=== PATIENT | male | born 1965 | race Caucasian/White ===

== ENCOUNTER 2016-04-12 10:09 | Emergency (ER) | payer BC ==
[~2016-04-12] VITALS: Ht 180.3 cm; Wt 68.0 kg
[~2016-04-12 10:09] MED LIST: ASPI1TAB22 PO; AZIT250T PO; CEFD300C3 PO; D ME PO; FAMO20TA5 PO; GNT.3OO351 OS; HYDR-757 PO; METO-333 PO; RIVA15TA PO
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
[2016-04-12 10:32] LABS: BILIRUBIN,URINE NEGATIVE (NEGATIVE); KETONES,URINE NEGATIVE (NEGATIVE); LEUKOCYTE ESTERASE ,URINE 1+ (NEGATIVE); NITRITE,URINE NEGATIVE (NEGATIVE); PH,URINE 7 (5-9); PROTEIN,URINE NEGATIVE (NEGATIVE); UROBILINOGEN,URINE 1 MG/DL (NORMAL)
--- NOTE | 2016-04-12 11:11 | ED GU-Male ---
General Chief Complaint: -Male Stated Complaint: L SIDE TESTICLE PAIN Nursing Triage Note: PT REPROTS DR PRITCHETT HAS BEEN TREATING HIM FOR A PROSTATE INFECTION SINCE THE . PT REPORTS HE CONTINUES TO HAVE L TESTICULAR PAIN AND BLOOD IN HIS URINE. Source: patient Exam Limitations: no limitations History of Present Illness Time seen by provider: 10:10 Initial Comments This 51-year-old gentleman presents to the emergency room with concerns about left testicular pain and hematuria. He also reports one episode of blood in his semen. He has been seeing Dr. Pritchett and is currently under treatment for prostatitis. He has completed 8 days of Bactrim and is on a prolonged taper. He is on anticoagulation therapy with Xarelto for history of DVT and pulmonary embolism. He reports Dr. Pritchett has performed a thorough workup including cystoscopy and CT of the abdomen and pelvis. A scrotal ultrasound has not been performed. His left testicular pain is his primary concern today. It is actually been intermittent for several weeks but has been worse the last couple of nights. The pain seems to be more in the location of the epididymis. He states the pain has not really improved since starting antibiotics. He denies any fever. No hematuria today. No dysuria. Allergies and Home Medications Allergies Coded Allergies: NKANo Known Allergies (Verified Allergy, Unknown, 03/25/05) peanut (Unverified Allergy, Unknown, 06/11/15) FROM UNCODED ALLERGIES Home Medications Aspirin/Acetaminophen/Caffeine 1 Each Tablet 1 TAB PO Q6H PRN PRN PAIN (Reported ) Azithromycin 250 Mg Tablet #2 250 MG PO DAILY TAKE 2 TABLETS TODAY, THEN TAKE 1 TABLET DAILY FOR 4 MORE DAYS Prescribed by: AMERICA DIALLO on 06/11/15 1632 Cefdinir 300 Mg Capsule #10 300 MG PO BID Prescribed by: AMERICA DIALLO on 06/11/15 1632 D-Methorphan/PE/Acetaminophen 1 Each Tablet 1 TAB PO Q4H PRN PRN ALLERGIES ( Reported) Famotidine 20 Mg Tablet #60 20 MG PO BID PRN PRN INDIGESTION Prescribed by: AMERICA DIALLO on 06/11/15 1632 Metoprolol Tartrate 25 Mg Tablet #60 25 MG PO BID Prescribed by: AMERICA DIALLO on 06/11/15 1632 Rivaroxaban 15 Mg Tablet #38 15 MG PO BID@,17 Take Xarelto 15 mg BID for 19 days then take 20 mg daily Prescribed by: AMERICA DIALLO on 06/11/15 1632 Constitutional: no symptoms reported EENTM: no symptoms reported Respiratory: no symptoms reported Cardiovascular: no symptoms reported Gastrointestinal: no symptoms reported Genitourinary: see HPI Musculoskeletal: no symptoms reported Skin: no symptoms reported Psychiatric/Neurological: No Symptoms Reported Endocrine: No Symptoms Reported Past Gmujcaw-Uaietr-Bghrta Hx Patient Social History Alcohol Use: Occasionally Uses Recreational Drug Use: No Smoking Status: Never a Smoker Recent Foreign Travel: No Contact w/Someone Who Travel: No Recent Infectious Disease Expo: No Recent Hopitalizations: No Immunizations Up To Date Tetanus Booster (TDap): More than 5yrs PED Vaccines UTD: No Date of Influenza Vaccine: Dec 04, 2015 Seasonal Allergies Seasonal Allergies: No Surgeries HX Surgeries: Yes (Vena Cava filter IVF) Respiratory Hx Respiratory Disorders: Yes Respiratory Disorders: Pulmonary Embolism Cardiovascular Hx Cardiac Disorders: Yes Cardiac Disorders: Deep Vein Thrombosis, Hypertension Neurological Hx Neurological Disorders: No Reproductive System Hx Reproductive Disorders: No Sexually Transmitted Disease: No HIV/AIDS: No Genitourinary Hx Genitourinary Disorders: No Genitourinary Disorders: Prostate Problems Gastrointestinal Hx Gastrointestinal Disorders: No Musculoskeletal Hx Musculoskeletal Disorders: No Endocrine Hx Endocrine Disorders: No HEENT HX ENT Disorders: No Cancer Hx Cancer: No Psychosocial Hx Psychiatric Problems: No Integumentary HX Skin/Integumentary Disorder: No Blood Transfusions Hx Blood Disorders: Yes (PROTEIN S DEF) Adverse Reaction to a Blood Tr: No Family Medical History Family Medial History: Arthritis Colon cancer 19 FATHER ( from Colon Cancer), , Age:56, Onset:50's - 60 Hypertension 19 MOTHER, Onset:50's - 60 Physical Exam Vital Signs Vital Sign - Last 12Hours 04/12/16 10:15 Temp 98.2 Pulse 71 Resp 18 B/P 138/81 Pulse Ox 98 O2 Delivery Room Air Capillary Refill : Less Than 3 Seconds General Appearance: WD/WN no apparent distress HEENT: PERRL/EOMI normal ENT inspection Neck: normal inspection Cardiovascular: regular rate, rhythm no edema no murmur Respiratory: lungs clear normal breath sounds no respiratory distress Gastrointestinal: non tender soft Male: no hernia testicular tenderness (posterior to the superior left testicle ) other (no evidence of hernia, erythema, orchitis, or mass based on exam) Back: normal inspection Extremities: normal inspection Neurologic/Psychiatric: brusher and shearer II-XII nml as tested no motor/sensory deficits alert normal mood/affect oriented x 3 Skin: normal color warm/dry Progress/Results/Core Measures Results/Orders Lab Results Laboratory Tests Test 04/12/16 10:14 Range/Units Urine Bacteria TRACE /HPF Urine Bilirubin NEGATIVE NEGATIVE Urine Casts NONE /LPF Urine Clarity CLEAR Urine Color YELLOW Urine Crystals NONE /LPF Urine Culture Indicated NO Urine Glucose (UA) NEGATIVE NEGATIVE Urine Ketones NEGATIVE NEGATIVE Urine Leukocyte Esterase 1+ H NEGATIVE Urine Mucus NEGATIVE /LPF Urine Nitrite NEGATIVE NEGATIVE Urine Protein NEGATIVE NEGATIVE Urine RBC NONE /HPF Urine RBC (Auto) NEGATIVE NEGATIVE Urine Specific [place] 1.010 L 1.016-1.022 Urine Urobilinogen 1 NORMAL MG/DL Urine WBC NONE /HPF Urine pH 7 5-9 My Orders Orders-CARMENCITA DUNN MD Ua Culture If Indicated (04/12/16 10:10) Vital Signs/I&O Vital Sign - Last 12Hours 04/12/16 04/12/16 10:15 11:20 Temp 98.2 Pulse 71 65 Resp 18 18 B/P 138/81 Pulse Ox 98 99 O2 Delivery Room Air Blood Pressure Mean: 100 Progress Note : Progress Note These symptoms are subacute and have been waxing and waning for several weeks. Emergent ultrasound was not felt necessary. An outpatient order form was provided to obtain an ultrasound next week. Departure Impression Impression: Primary Impression: Left testicular pain Disposition: HOME, SELF-CARE Condition: Stable Departure-Patient Inst. Decision time for Depature: 11:00 Referrals: NO,LOCAL PHYSICIAN (PCP/Family) Primary Care Physician Patient Instructions: NO INSTRUCTIONS GIVEN Add. Discharge Instructions: Continue with your antibiotics as prescribed. Call [phone] to schedule your US tomorrow morning. Contact Dr. Pritchett's office tomorrow morning as well to notify them of your continued problems. All discharge instructions reviewed with patient and/or family. Voiced understanding. Copy Copies To 1: YOANA PRITCHETT MD, JOSHUA T MD Apr 12, 2016 11:11
[2016-04-12 11:20] VITALS: BP 126/78
== END 2016-04-12 11:20 | disposition home or self-care (01) ==
LOC: EDUNIT# 10:09 → ER 10:11
DX: N50.812 Left testicular pain (principal); R31.9 Hematuria, unspecified; I10 Essential (primary) hypertension; Z79.82 Long term (current) use of aspirin; Z79.899 Other long term (current) drug therapy
CPT/HCPCS: 81000; 99283

== ENCOUNTER → 2016-04-13 | Outpatient (CLI) | payer BC ==
--- OUTSIDE RECORDS SUMMARY | 2016-04-13 09:05 | XMS REPORT | Continuity of Care Document ---
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 No 04/12/16 10:15am Organ Donor No 04/12/16 10:15am Resuscitation Status Full Code 04/12/16 10:15am Chief Complaint and Reason for Visit Chief Complaint -Male Reason for Visit [id number] Problems Active Problems Medical Problem Onset Date Status Chest pain Unknown Acute Corneal abrasion, right Unknown Acute Left testicular pain Unknown Acute Pneumonia Unknown Acute Subconjunctival hemorrhage of right eye Unknown Acute Medications Current Home Medications Medication Dose Units Route Directions Days/Qty Instructions Start Date Aspirin/Acetaminophen/Caffeine 1 Each 1 Tab Oral Every 6 Hours as needed for Pain 06/10/15 D-Methorphan/Pe/Acetaminophen 1 Each 1 Tab Oral Every 4HRS as needed for Allergies 06/10/15 Rivaroxaban 15 Mg 15 Mg Oral Bid@,17 38 Take Xarelto 15 mg BID for 19 days then take 20 mg daily 06/11/15 Metoprolol Tartrate 25 Mg 25 Mg Oral Twice A Day 60 06/11/15 Cefdinir (Omnicef) 300 Mg 300 Mg Oral Twice A Day 10 06/11/15 Azithromycin 250 Mg 250 Mg Oral Daily 2 TAKE 2 TABLETS TODAY, THEN TAKE 1 TABLET DAILY FOR 4 MORE DAYS 06/11/15 Famotidine 20 Mg 20 Mg Oral Twice A Day as needed for Indigestion 60 06/11/15 Past Home Medications Medication Directions Ordered Status Hydrocodone Bit/Acetaminophen 1 Each Tablet, 1 Ea Oral Every 6 Hours as needed for Severe Pain 05/30/14 Discontinued Gentamicin Sulfate 3.5 Gm Oint, 0 Left Eye Three Times A Day 05/30/14 Discontinued Social History Social History Problem Response Recorded Date/Time Alcohol Use Occasionally Uses 06/08/2015 10:47pm Recreational Drug Use No 06/08/2015 10:47pm Recent Foreign Travel No 04/12/2016 10:15am Recent Infectious Disease Exposure No 04/12/2016 10:15am Sexually Transmitted Disease No 04/12/2016 10:15am HIV/AIDS No 04/12/2016 10:15am Smoking Status Never a Smoker 04/12/2016 10:15am Do you dip or chew tobacco? No 06/08/2015 10:37pm Recent Hopitalizations No 04/12/2016 10:15am Sexually Transmitted Disease No 04/12/2016 10:15am Query Response Start Date Stop Date Smoking Status Never a Smoker Hospital Discharge Instructions No hospital discharge instructions. Plan of Care Discharge Date 04/12/16 11:20am Disposition 01 HOME, SELF-CARE Condition at Discharge Stable Instructions/Education Provided NO INSTRUCTIONS GIVEN Prescriptions See Medication Section Referrals NO,LOCAL PHYSICIAN - Primary Care Physician Additional Instructions/Education Continue with your antibiotics as prescribed. Call [phone] to schedule your US tomorrow morning. Contact Dr. Pritchett's office tomorrow morning as well to notify them of your continued problems. All discharge instructions reviewed with patient and/or family. Voiced understanding. Functional Status No functional status results. Allergies, Adverse Reactions, Alerts Allergen Type Severity Reaction Status Last Updated peanut ([id number]) Allergy Unknown Active 06/11/15 NKANo Known Allergies Allergy Unknown Active 03/25/05 Immunizations No immunization records. Vital Signs Acute Vital Signs Vital Response Date/Time Temperature (Fahrenheit) 98.2 degrees F (97.6 - 99.5) 04/12/2016 10:15am Temperature (Calculated Celsius) 36.01046 degrees C (36.4 - 37.5) 04/12/2016 10:15am Temperature Source Temporal 04/12/2016 10:15am Pulse Rate (adult) 71 bpm (60 - 90) 04/12/2016 10:15am Respiratory Rate 18 bpm (12 - 24) 04/12/2016 10:15am O2 Sat by Pulse Oximetry 98 % (88 - 100) 04/12/2016 10:15am Blood Pressure 138/81 mm Hg 04/12/2016 10:15am Blood Pressure Mean 100 mm Hg 04/12/2016 10:15am Pain Numeric Pain Scale 3 04/12/2016 10:15am Height (Feet) 5 feet 04/12/2016 10:15am Height (Inches) 11.00 inches 04/12/2016 10:15am Height (Calculated Centimeters) 180.985842 cm 04/12/2016 10:15am Weight (Pounds) 150 pounds 04/12/2016 10:15am Weight (Ounces) 0.0 oz 04/12/2016 10:15am Weight (Calculated Grams) 06692.932 gm 04/12/2016 10:15am Weight (Calculated Kilograms) 68.213721 kilograms 04/12/2016 10:15am Calculated BMI 19.8 04/12/2016 10:15am Capillary Refill Capillary Refill Less Than 3 Seconds 04/12/2016 10:15am Results Laboratory Results Test Name Result Units Flags Reference Collection Date/Time Result Date/ Time Comments Urine Color YELLOW 04/12/2016 10:14am 04/12/2016 10:47am Urine Clarity CLEAR 04/12/2016 10:14am 04/12/2016 10:47am Urine pH 7 5-9 04/12/2016 10:14am 04/12/2016 10:47am Urine Specific [place] 1.010 * 1.016-1.022 04/12/2016 10:14am 2016 10:47am Urine Protein NEGATIVE NEGATIVE 04/12/2016 10:14am 04/12/2016 10: 47am Urine Glucose (UA) NEGATIVE NEGATIVE 04/12/2016 10:14am 04/12/2016 10 :47am Urine RBC (Auto) NEGATIVE NEGATIVE 04/12/2016 10:14am 04/12/2016 10: 47am Urine Ketones NEGATIVE NEGATIVE 04/12/2016 10:14am 04/12/2016 10: 47am Urine Nitrite NEGATIVE NEGATIVE 04/12/2016 10:14am 04/12/2016 10: 47am Urine Bilirubin NEGATIVE NEGATIVE 04/12/2016 10:14am 04/12/2016 10: 47am Urine Urobilinogen 1 MG/DL NORMAL 04/12/2016 10:14am 04/12/2016 10: 47am Urine Leukocyte Esterase 1+ * NEGATIVE 04/12/2016 10:14am 04/12/2016 10 :47am Urine RBC NONE /HPF 04/12/2016 10:14am 04/12/2016 10:47am Urine WBC NONE /HPF 04/12/2016 10:14am 04/12/2016 10:47am Urine Bacteria TRACE /HPF 04/12/2016 10:14am 04/12/2016 10:47am Urine Crystals NONE /LPF 04/12/2016 10:14am 04/12/2016 10:47am Urine Casts NONE /LPF 04/12/2016 10:14am 04/12/2016 10:47am Urine Mucus NEGATIVE /LPF 04/12/2016 10:14am 04/12/2016 10:47am Urine Culture Indicated NO 04/12/2016 10:14am 04/12/2016 10:47am Procedures No known history of procedures. Encounters Encounter Location Arrival/Admit Date Discharge/Depart Date Attending Provider Departed Emergency Room [facility] 04/12/16 10:11am 11:20am CARMENCITA DUNN MD Recent Diagnosis
--- NOTE | 2016-04-13 11:01 | Diagnostic Imaging Report ---
Scrotal ultrasound. INDICATION: Left testicular pain. FINDINGS: The right testicle is 4.8 x 2.8 x 2.9 cm. The left testicle is 4.0 x 1.9 x 2.8 cm. There is a tiny focus of hyperechoic area seen in the left testicle measuring 2 x 2 x 1 mm with no associated shadowing and no internal vascularity demonstrated. There is a left epididymis head simple cyst seen measuring 5 mm. There is bilateral vascularity demonstrated in the testicles in a symmetric fashion with color Doppler and venous and arterial waveforms demonstrated over both testicles. No varicocele. No significant hydrocele. IMPRESSION: There is a tiny indeterminate hyperechoic lesion measuring 2 mm in the left testicle of uncertain significance. Sequela of prior minor injury or inflammation is possible. A followup study in four months is recommended to ensure stability or resolution. Dictated by: Dictated on workstation # [id number]
== END ==
LOC: RAD 08:55
PROVIDERS: ATTEND Family Medicine
DX: N50.89 Other specified disorders of the male genital organs (principal)
CPT/HCPCS: 76870

== ENCOUNTER 2016-08-13 08:51 | Emergency (ER) | payer BC ==
[~2016-08-13] VITALS: Ht 180.3 cm; Wt 71.7 kg
[2016-08-13] MEDS ORDERED: SULF-11 (09:07)
[2016-08-13] MEDS ORDERED: RIVA20TA (09:07)
--- NOTE | 2016-08-13 09:07 | ED Cardiac General ---
History of Present Illness General Chief Complaint: Chest Pain Stated Complaint: CHEST PAIN/IRREGULAR HEARBEAT Allergies and Home Medications Allergies Coded Allergies: peanut (Unverified Allergy, Unknown, 06/11/15) FROM UNCODED ALLERGIES Home Medications Famotidine 20 Mg Tablet, 20 MG PO BID PRN for INDIGESTION, #60 Ref 2 Prescribed by: AMERICA DIALLO on 06/11/15 1632 Metoprolol Tartrate 25 Mg Tablet, 25 MG PO BID, #60 Ref 2 Prescribed by: AMERICA DIALLO on 06/11/15 1632 Rivaroxaban 15 Mg Tablet, 15 MG PO BID@,17, #38 Ref 0 Take Xarelto 15 mg BID for 19 days then take 20 mg daily Prescribed by: AMERICA DIALLO on 06/11/15 1632 Rivaroxaban 20 Mg Tablet, #90 (Reported) Sulfamethoxazole/Trimethoprim 1 Each Tablet, #15 (Reported) Past Efswmfl-Fiaxtr-Cfvsjh Hx Patient Social History Recent Hopitalizations: No Immunizations Up To Date Tetanus Booster (TDap): More than 5yrs PED Vaccines UTD: No Date of Influenza Vaccine: Dec 04, 2015 Seasonal Allergies Seasonal Allergies: No Surgeries HX Surgeries: Yes (Vena Cava filter IVF) Respiratory Hx Respiratory Disorders: Yes Respiratory Disorders: Pulmonary Embolism Cardiovascular Hx Cardiac Disorders: Yes Cardiac Disorders: Deep Vein Thrombosis, Hypertension Neurological Hx Neurological Disorders: No Reproductive System Hx Reproductive Disorders: No Sexually Transmitted Disease: No HIV/AIDS: No Genitourinary Hx Genitourinary Disorders: No Genitourinary Disorders: Prostate Problems Gastrointestinal Hx Gastrointestinal Disorders: No Musculoskeletal Hx Musculoskeletal Disorders: No Endocrine Hx Endocrine Disorders: No HEENT HX ENT Disorders: No Cancer Hx Cancer: No Psychosocial Hx Psychiatric Problems: No Integumentary HX Skin/Integumentary Disorder: No Blood Transfusions Hx Blood Disorders: Yes (PROTEIN S DEF) Adverse Reaction to a Blood Tr: No Family Medical History Family Medial History: Arthritis Colon cancer 19 FATHER ( from Colon Cancer), , Age:56, Onset:50's - 60 Hypertension 19 MOTHER, Onset:50's - 60 Physical Exam Vital Signs Vital Sign - Last 12Hours 08/13/16 08:51 Temp 97.2 Pulse 85 Resp 17 B/P (MAP) 141/83 Pulse Ox 99 O2 Delivery Room Air Capillary Refill : Progress/Results/Core Measures Results/Orders Lab Results Laboratory Tests Test 08/13/16 08:58 Range/Units White Blood Count 8.3 4.3-11.0 10^3/uL Red Blood Count 4.58 4.35-5.85 10^6/uL Hemoglobin 14.4 13.3-17.7 G/DL Hematocrit 41 40-54 % Mean Corpuscular Volume 90 80-99 FL Mean Corpuscular Hemoglobin 31 25-34 PG Mean Corpuscular Hemoglobin Concent 35 32-36 G/DL Red Cell Distribution Width 12.7 10.0-14.5 % Platelet Count 239 130-400 10^3/uL Mean Platelet Volume 11.1 H 7.4-10.4 FL Neutrophils (%) (Auto) 70 42-75 % Lymphocytes (%) (Auto) 18 12-44 % Monocytes (%) (Auto) 10 0-12 % Eosinophils (%) (Auto) 2 0-10 % Basophils (%) (Auto) 1 0-10 % Neutrophils # (Auto) 5.8 1.8-7.8 X 10^3 Lymphocytes # (Auto) 1.5 1.0-4.0 X 10^3 Monocytes # (Auto) 0.8 0.0-1.0 X 10^3 Eosinophils # (Auto) 0.2 0.0-0.3 10^3/uL Basophils # (Auto) 0.1 0.0-0.1 10^3/uL Prothrombin Time 18.4 H 12.2-14.7 SEC INR Comment 1.6 H 0.8-1.4 Activated Partial Thromboplast Time 43 H 24-35 SEC Sodium Level 132 L 135-145 MMOL/L Potassium Level 4.2 3.6-5.0 MMOL/L Chloride Level 99 98-107 MMOL/L Carbon Dioxide Level 23 21-32 MMOL/L Anion Gap 10 5-14 MMOL/L Blood Urea Nitrogen 9 7-18 MG/DL Creatinine 1.08 0.60-1.30 MG/DL Estimat Glomerular Filtration Rate > 60 BUN/Creatinine Ratio 8 Glucose Level 110 H 70-105 MG/DL Calcium Level 9.4 8.5-10.1 MG/DL Magnesium Level 2.4 1.8-2.4 MG/DL Total Bilirubin 0.8 0.1-1.0 MG/DL Aspartate Amino Transf (AST/SGOT) 21 5-34 U/L Alanine Aminotransferase (ALT/SGPT) 23 0-55 U/L Alkaline Phosphatase 35 L 40-136 U/L Total Creatine Kinase 119 30-200 U/L Creatine Kinase MB 1.4 <6.6 NG/ML Troponin I < 0.30 <0.30 NG/ML B-Type Natriuretic Peptide 49.1 <100.0 PG/ML Total Protein 7.2 6.4-8.2 GM/DL Albumin 4.5 3.2-4.5 GM/DL Amylase Level 70 25-125 U/L Lipase 22 8-78 U/L TSH [place] Testing 0.68 0.35-4.94 UIU/ML My Orders Orders - NARCISO CORTEZ DO Amylase (08/13/16 08:52) Cbc With Automated Diff (08/13/16 08:52) Comprehensive Metabolic Panel (08/13/16 08:52) Creatine Kinase (08/13/16 08:52) Creatine Kinase Mb (08/13/16 08:52) Lipase (08/13/16 08:52) Partial Thromboplastin Time (08/13/16 08:52) Protime With Inr (08/13/16 08:52) Troponin I (08/13/16 08:52) Chest 1 View, Ap/Pa Only (08/13/16 08:52) O2 (08/13/16 08:52) Ekg Tracing (08/13/16 08:52) BNP (08/13/16 08:52) Monitor-Rhythm Ecg Trace Only (08/13/16 08:52) Magnesium (08/13/16 08:52) Thyroid Analyzer (08/13/16 08:52) Vital Signs/I&O Vital Sign - Last 12Hours 08/13/16 08/13/16 08/13/16 08:51 09:24 10:40 Temp 97.2 Pulse 85 63 Resp 17 18 B/P (MAP) 141/83 Pulse Ox 99 98 O2 Delivery Room Air Room Air Room Air Progress Note : Progress Note UNEVENTFUL ER STAY--PT HAD NO COMPLAINTS DURING STAY, NO CHEST PAIN, NO SHORTNESS OF BREATH AND WAS ASYMPTOMATIC DURING PVC'S WHILE IN ER. ECG Initial ECG Impression Time: 08:56 Initial ECG Rate: 69 Initial ECG Rhythm: Normal Sinus (WITH PVC'S) Initial ECG Comparisson: Unchanged Diagnostic Imaging Comments CXR--NO ACUTE PROCESS, PER RADIOLOGIST REPORT @ 1010 Reviewed: Reviewed by Me Departure Communication Progress Notes 1020--SPOKE WITH DR. DIALLO. HE ADVISES TO DISMISS THE PT AND PT IS TO COME TO HIS OFFICE AFTER HE IS DISMISSED. Impression Impression: Primary Impression: Chest pain Additional Impressions: Frequent PVCs Symptomatic PVCs Anxiety Disposition: 01 HOME, SELF-CARE Condition: Stable Departure-Patient Inst. Referrals: AMERICA DIALLO MD NO,LOCAL PHYSICIAN (PCP) Primary Care Physician Patient Instructions: Chest Pain (DC), Palpitations (DC) Add. Discharge Instructions: GOT DIRECTLY TO DR. DIALLO'S OFFICE FROM ER All discharge instructions reviewed with patient and/or family. Voiced understanding. NARCISO CORTEZ DO Aug 13, 2016 09:07
[2016-08-13 09:08] LABS: BASOPHILS # (AUTO) 0.1 10^3/uL (0.0-0.1); BASOPHILS % (AUTO) 1 % (0-10); EOSINOPHILS # (AUTO) 0.2 10^3/uL (0.0-0.3); EOSINOPHILS % (AUTO) 2 % (0-10); LYMPHOCYTES # (AUTO) 1.5 X 10^3 (1.0-4.0); LYMPHOCYTES % (AUTO) 18 % (12-44); MEAN CORPUSCULAR HEMOGLOBIN 31 PG (25-34); MEAN CORPUSCULAR HGB CONC 35 G/DL (32-36); MEAN CORPUSCULAR VOLUME 90 FL (80-99); MEAN PLATELET VOLUME 11.1 FL (7.4-10.4); MONOCYTES # (AUTO) 0.8 X 10^3 (0.0-1.0); MONOCYTES % (AUTO) 10 % (0-12); NEUTROPHILS # (AUTO) 5.8 X 10^3 (1.8-7.8); NEUTROPHILS % (AUTO) 70 % (42-75); PLATELET COUNT 239 10^3/uL (130-400); RED BLOOD COUNT 4.58 10^6/uL (4.35-5.85); RED CELL DISTRIBUTION WIDTH 12.7 % (10.0-14.5); WHITE BLOOD COUNT 8.3 10^3/uL (4.3-11.0)
[2016-08-13 09:18] LABS: INR 1.6 (0.8-1.4); PROTHROMBIN TIME PATIENT 18.4 SEC (12.2-14.7)
--- NOTE | 2016-08-13 09:25 | Diagnostic Imaging Report ---
EXAMINATION: Portable upright radiograph of the chest. INDICATION: Chest pain. FINDINGS: The lungs are hyperinflated but clear. The heart size is normal. No effusion or pneumothorax. The mediastinum and catalina appear unremarkable. IMPRESSION: Hyperinflated clear lungs. Dictated by: Dictated on workstation # [id number]
[2016-08-13 09:27] LABS: ALANINE AMINOTRANSFERASE 23 U/L (0-55); ALBUMIN 4.5 GM/DL (3.2-4.5); AMYLASE 70 U/L (25-125); ANION GAP 10 MMOL/L (5-14); ASPARTATE AMINO TRANSFERASE 21 U/L (5-34); BILIRUBIN,TOTAL 0.8 MG/DL (0.1-1.0); BLOOD UREA NITROGEN 9 MG/DL (7-18); BUN/CREATININE RATIO 8; CALCIUM 9.4 MG/DL (8.5-10.1); CARBON DIOXIDE 23 MMOL/L (21-32); CHLORIDE 99 MMOL/L (98-107); CREATINE KINASE 119 U/L (30-200); CREATININE SERUM 1.08 MG/DL (0.60-1.30); GFR ESTIMATED > 60; GLUCOSE 110 MG/DL (70-105); LIPASE 22 U/L (8-78); MAGNESIUM 2.4 MG/DL (1.8-2.4); POTASSIUM 4.2 MMOL/L (3.6-5.0); SODIUM 132 MMOL/L (135-145); TOTAL PROTEIN 7.2 GM/DL (6.4-8.2)
[2016-08-13 09:46] LABS: TROPONIN I < 0.30 NG/ML (<0.30)
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
[2016-08-13 10:40] VITALS: BP 119/63
== END 2016-08-13 10:26 | disposition home or self-care (01) ==
LOC: EDUNIT# 08:51 → ER 08:53
DX: R07.9 Chest pain, unspecified (principal); I49.3 Ventricular premature depolarization; I10 Essential (primary) hypertension; F41.9 Anxiety disorder, unspecified
CPT/HCPCS: 36415; 71010; 80053; 82150; 82550; 82553; 83690; 83735; 83880; 84443; 84484; 85025; 85610; 85730; 93005; 93041

== ENCOUNTER → 2016-08-19 | Outpatient (CLI) | payer BC ==
[~2016-08-19] MED LIST changes: +RIVA20TA; +SULF-11
--- NOTE | 2016-08-19 16:42 | STRESS TEST ---
PROCEDURE PHYSICIAN: AMERICA DIALLO DATE OF PROCEDURE: 08/19/2016 EXERCISE STRESS ECHOCARDIOGRAM REPORT: BASELINE HEART RATE: BASELINE BLOOD PRESSURE: 140/80. BASELINE EKG: Sinus rhythm with frequent PVCs. IN SUMMARY: The patient started exercising with a baseline heart rate, blood pressure, EKG mentioned above. During exercise, the patient was having multiple PVCs, ventricular couplet and ventricular trigeminy occasional multifocal PVCs. He was able to exercise for a total of 8 minutes on standard Jonathan protocol. With peak exercise level, his PVCs had improved slightly. He had [address] depression in 2, 3, aVF, V4 and V5. Blood pressure was 191/64. During recovery, within a minute of recovery he started having frequent PVCs and ventricular bigeminy and again occasional ventricular couplets. Denied any chest pain. At the end of the test, heart rate and blood pressure returned to baseline, continued to have PVCs. Echocardiographic images were acquired and reviewed in the parasternal long axis, parasternal short axis, apical 4 chamber and apical 2 chamber views. Review of the images showed normal left ventricular size with normal contractility with no ischemic changes with estimated ejection fraction 60%. IN CONCLUSION: 1. Good exercise tolerance a total of 8 minutes on standard Jonathan protocol. Total of 10.1 METs, achieving 90% of maximum expected heart rate. 2. Hypertensive response to exercise, returned to baseline during recovery. 3. Nondiagnostic EKG changes with exercise, returned to baseline during recovery. 4. Frequent PVCs, ventricular couplets, ventricular bigeminy and trigeminy persisted throughout test improved slightly at peak stress level and started within one minute of recovery again. 5. Normal echocardiographic images at rest and with peak stress test with no ischemic changes. Job ID: [id number] Dictated Date: 08/19/2016 13:50:48 Hairspring Vibrator Date: 08/19/2016 16:37:10 / tbk
== END ==
LOC: CARD 11:47
PROVIDERS: ATTEND Internal Medicine Cardiovascular Disease
DX: I49.3 Ventricular premature depolarization (principal); R07.9 Chest pain, unspecified; R00.2 Palpitations; D68.59 Other primary thrombophilia
CPT/HCPCS: 93351

== ENCOUNTER → 2016-10-09 | Outpatient (CLI) | payer BC ==
[~2016-10-09] MED LIST changes: +ASPI-789 PO; -ASPI1TAB22 PO
== END ==
LOC: CARD 12:16
PROVIDERS: ATTEND Internal Medicine Interventional Cardiology
DX: I49.3 Ventricular premature depolarization (principal); R00.2 Palpitations
CPT/HCPCS: 93225; 93226